=== PATIENT | male | born 1980 | race Caucasian/White ===

== ENCOUNTER → 2018-07-10 14:30 | Outpatient (CLI) | payer OTHER, SELFPAY ==
--- NOTE | 2018-07-10 14:33 | DI.RAD.S_ITS ---
PROCEDURE: XR TOE LT MIN 2V INDICATIONS: joint pain and swelling TECHNIQUE: 3 views of the first toe(s) acquired. COMPARISON: None. FINDINGS: Bones: No fractures or dislocations. No suspicious bony lesions. Soft tissues: No suspicious soft tissue densities. IMPRESSION: No trauma found. Source of pain and swelling is not seen. Dictated by: Ankur Mccracken M.D. on 07/10/2018 at 15:38 Approved by: Ankur Mccracken M.D. on 07/10/2018 at 15:38
== END ==
PROVIDERS: Visit Provider Physician Assistant
DX: M25.572 Pain in left ankle and joints of left foot (principal); M25.475 Effusion, left foot
CPT/HCPCS: 73660

== ENCOUNTER → 2023-10-18 09:06 | Outpatient (CLI) | payer OTHER, SELFPAY ==
--- NOTE | 2023-10-18 09:15 | DI.RAD.S_ITS ---
PROCEDURE: XR SHOULDER LT MIN 2V INDICATIONS: LEFT SHOULDER PAIN TECHNIQUE: 3 views of the shoulder were acquired. COMPARISON: None. FINDINGS: Bones: No fractures or dislocations. No suspicious bony lesions. Visualized ribs appear intact. Moderate acromioclavicular narrowing. Mild high-riding appearance of the humeral head. Soft tissues: No suspicious soft tissue calcifications. IMPRESSION: Acromioclavicular narrowing. High riding appearance of the humeral head, which can be indicative of rotator cuff pathology. Dictated by: Elizabeth Landon M.D. on 10/18/2023 at 14:50 Approved by: Elizabeth Landon M.D. on 10/18/2023 at 14:51
== END ==
LOC: RAD 09:13
PROVIDERS: PCP Preventive Medicine Public Health & General Preventive Medicine; Referring Provider Preventive Medicine Public Health & General Preventive Medicine; Visit Provider Preventive Medicine Public Health & General Preventive Medicine
DX: M25.512 Pain in left shoulder (principal)
CPT/HCPCS: 73030